=== PATIENT | female | born 1970 | race Caucasian/White ===

== ENCOUNTER 2018-11-18 21:04 | Emergency (ER) | payer SELFPAY ==
[~2018-11-18] VITALS: Ht 167.6 cm; Wt 65.0 kg
[2018-11-18 21:13] VITALS: BP 155/94
== END 2018-11-19 01:53 | disposition left against medical advice (07) ==
LOC: ER 21:11
DX: Z53.21 Procedure and treatment not carried out due to patient leaving prior to being seen by health care provider (principal)